=== PATIENT | female | born 1975 | race Caucasian/White ===

== ENCOUNTER 2019-10-11 07:39 | Outpatient (CLI) | payer OTHER, SELFPAY ==
--- NOTE | 2019-10-11 07:51 | CT_ITS ---
WS: [id number] EXAM: CT neck w con* [id number] DATE OF EXAMINATION: 10/11/2019, 0818 hours COMPARISON: None. HISTORY: 44 years old with left-sided jaw swelling for the last 6 months. Unable to eat without hurting. TECHNIQUE: Transaxial computed tomography images obtained through the neck utilizing 95 mL of Omnipaq ue 300 IV contrast with images acquired in the bolus phase and viewed in multiple windows with recons tructions. DLP: 1925.[address] scans at [facility] use at least one of these dose optimization techniques: automat ed exposure control; mA and/or kV adjustment per patient size (includes targeted exams where dose is matched to clinical indication); or iterative reconstruction. FINDINGS: The visualized mid and inferior intracranial contents are unremarkable. Both orbital fossa are normal in appearance. Bilateral parotid glands are normal in appearance. The right submandibular salivary g land is normal in appearance. The left submandibular salivary gland shows a large stone in the upper aspect of the gland with ductal dilatation seen distally to the stone. Estimated size of the stone is approximately 10 x 9 x 6 mm in size. No soft tissue mass component is seen. The left submandibular s alivary gland duct is not appreciably dilated. No stone within the duct demonstrated distally. No extensive sinusitis changes seen. Mastoid air cells are pneumatized and well aerated. Nasopharyngeal region, parapharyngeal fat planes, tonsillar pillars are normal in appearance. Soft pa late, tongue, sublingual space, vallecular space, epiglottis, aryepiglottic folds, vocal cords and shah bglottic airway are normal in appearance. Upper aspect of the thyroid gland is unremarkable. No patho logical adenopathy within the neck. No findings of spinal canal compromise. CT/CT neck w con* [id number] IMPRESSION: Findings of sialolithiasis left submandibular salivary gland as described. The stone is causing some degree of post obstructive ductal dilatation behind the s tone. No smaller stone within the left submandibular salivary gland duct seen. No additional salivary gland or duct stones identified.
[2019-10-11] MEDS: iohexol 300 mg/mL 100 mL Btl IV (08:20)
== END 2019-10-11 07:40 | disposition home or self-care (01) ==
PROVIDERS: PCP Physician Assistant; Visit Provider Specialist
DX: D37.030 Neoplasm of uncertain behavior of the parotid salivary glands (principal); R22.0 Localized swelling, mass and lump, head
CPT/HCPCS: 70491; Q9967

== ENCOUNTER 2024-01-29 13:57 | Emergency (ER) | payer OTHER, SELFPAY ==
[2024-01-29 14:05] VITALS: BP 106/70; PULSE 74; RESP 18; TEMP 36.7; O2SAT 100; BMI 17.0
[2024-01-29 14:40] VITALS: BP 125/74; PULSE 75; O2SAT 99
--- NOTE | 2024-01-29 14:45 | XRR_ITS ---
PROCEDURE INFORMATION: Exam: XR Right Hip Exam date and time: 01/29/2024 2:50 PM Age: 48 years old Clinical indication: Right hip; Patient HX: RT hip pain/lower back/rt posterior pelvis/sciatic pain post fall today TECHNIQUE: Imaging protocol: Radiologic exam of the right hip. Views: 1 view hip with pelvis when performed. COMPARISON: CR (PELVIS, ) 01/29/2024 2:47 PM FINDINGS: Bones/joints: Unremarkable. No acute fracture. Soft tissues: Unremarkable. Vasculature: There are numerous benign phleboliths in the pelvis. XR/XR hip RT 2-3V wo/w pel* [id number] IMPRESSION: No acute fracture or dislocation.
--- NOTE | 2024-01-29 14:45 | XRR_ITS ---
PROCEDURE INFORMATION: Exam: XR Lumbosacral Spine Exam date and time: 01/29/2024 2:47 PM Age: 48 years old Clinical indication: Lumbago; Patient HX: Lower back/rt posterior pelvis/sciatic pain post fall today TECHNIQUE: Imaging protocol: Radiologic exam of the lumbosacral spine. Views: 2 or 3 views. COMPARISON: No relevant prior studies available. FINDINGS: Bones/joints: Mild curvature of the lumbar spine convex to the right. 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 Soft tissues: Unremarkable. Vasculature: There are numerous benign phleboliths in the pelvis. XR/XR lumbar spine 2-3V* [id number] IMPRESSION: No acute fracture or dislocation.
--- NOTE | 2024-01-29 14:46 | ED_ITS ---
HPI - Extremity Problem General: Chief complaint: Extremity Injury, Lower Stated complaint: fell off ladder - right hip and leg injury Time Seen by Provider: 01/29/24 14:18 Source: patient Mode of arrival: ambulatory Limitations: no limitations History of Present Illness: 48-year-old female states that she is up on a ladder just prior to arrival she states that she fell roughly 8 foot onto the ground. States she landed on her right hip she has right hip pain along with low back pain she is ambulatory since event she denies any other injuries rates her pain a 6 out of 10 is worse with ambulation. Denies hitting her head. Associated symptoms: Deny chest pain, fever(s) or rash Related Data Home Medications Medication Instructions Recorded Confirmed No Known Home Medications 01/29/24 01/29/24 Allergies Allergy/AdvReac Type Severity Reaction Status Date / Time No Known Allergies Allergy Unverified 09/20/22 09:14 Review of Systems Const: Denies: fever(s), chills, body aches or change in appetite ENMT: Denies: throat pain or dental pain Card: Denies: chest pain Resp: Denies: dyspnea GI: Denies: abdominal pain, nausea, vomiting or diarrhea Musc: Reports: back pain and extremity pain; Denies: neck pain Skin/Breast: Denies: rash Neuro: Denies: headache(s) Physical Exam Const: COMMON NORMALS: no acute distress, patient oriented x3 and healthy appearing HENMT: COMMON NORMALS: normocephalic and atraumatic HEAD & SCALP: normocephalic and atraumatic Neck/C-Spine: COMMON NORMALS: full ROM and supple Chest: COMMONS NORMALS: normal inspection of the chest Resp: COMMON NORMALS: normal respiratory effort Cardio: COMMON NORMALS: regular rate RATE: regular rate Back/Pelvis: OTHER: Some right hip tenderness right lower spine tenderness no obvious deformity Extremity: COMMON NORMALS: normal to inspection and full ROM Neuro: COMMON NORMALS: patient oriented x3, moves all extremities and no focal motor deficits Psych: COMMON NORMALS: mental status grossly normal, Normal thought process present and cooperative THOUGHT PROCESS: Normal thought process present Skin: COMMON NORMALS: no rashes or lesions noted and no wounds GENERAL SKIN EXAM: no rashes or lesions noted Course Vital Signs: Vital signs: Vital Signs Temperature 98.1 F 01/29/24 14:05 Pulse Rate 75 01/29/24 14:40 Respiratory Rate 18 01/29/24 14:05 Blood Pressure 125/74 01/29/24 14:40 Pulse Oximetry 99 01/29/24 14:40 Oxygen Delivery Me thod Room Air 01/29/24 14:40 MDM - Extremity (Nontraumatic) Medical Decision Making Patient presents here with right hip contusion from a fall x-rays here show no fracture she is ambulatory here she stable for discharge follow-up with PCP return if worsening. Medical Records I reviewed the patient's medical records. XR interpretation done by ED provider, pending radiology final review ED provider radiology interpretation(s): X-ray right hip no acute fracture X-ray lumbar spine no acute fracture Discharge Plan Discharge Patient Disposition: Home Clinical Impression: Contusion of right hip, Fall Condition: Stable Prescriptions: No Action No Known Home Medications Discharge Orders: Discharge ED (Routine); Ordered 01/29/24 Ordered By: Shara Negron Referrals: Juana Rucker PA [Primary Care Provider] - 4-7 days Discharge Diet: Advance as tolerated Discharge Activity: Resume usual activity Patient Instructions: Contusion in Adults (ED) Coding Level of Care Code ED [employer] for Marcel Clarke
[2024-01-29] MEDS: naproxen 500 mg Tablet PO (15:24)
[2024-01-29 16:09] VITALS: BP 94/51; PULSE 56; O2SAT 93
== END 2024-01-29 16:10 | disposition home or self-care (01) ==
PROVIDERS: Emergency Provider Emergency Medicine; PCP Physician Assistant
DX: S70.01XA Contusion of right hip, initial encounter (principal); W11.XXXA Fall on and from ladder, initial encounter
CPT/HCPCS: 72100; 73502; 99284